=== PATIENT | female | born 1990 | race Caucasian/White ===

== ENCOUNTER 2024-04-18 18:01 | Emergency (ER) | payer MEDICAID, SELFPAY ==
[2024-04-18] VITALS (7 sets, daily range): BP systolic 155–172; BP diastolic 85–109; PULSE 54–77; RESP 16; TEMP 36.8; O2SAT 96–100; BMI 29.9
--- NOTE | 2024-04-18 19:08 | W.ED.ABDPA2 ---
HPI - Abdominal Pain General: Chief Complaint: Abdominal Pain Stated Complaint: N/V Time Seen by Provider: 04/18/24 18:55 History of Present Illness: 34-year-old female presents emergency room complaining of nausea vomiting abdominal pain and cramping for the last several days. She had a headache with some vomiting weakness no hematochezia or melena. No fever sweats or chills she denies previous abdominal surgeries this is actually been going on intermittently for a couple of months she was seen previously at another emergency room no significant organomegaly at that time. Associated Symptoms: Denies chills, dysuria and fever(s) Related Data Date of Last Menstrual Period: 04/16/24 Previous Rx's Medication Instructions Recorded ciprofloxacin HCl 250 mg tablet 250 mg PO BID #10 tabs 04/18/24 (Cipro) lorazepam 2 mg tablet (Ativan) 2 mg buccal Q6H PRN nausea and 04/18/24 vomiting #14 tabs olanzapine 10 mg disintegrating 10 mg PO Q6H PRN nausea and 04/18/24 tablet (Zyprexa Zydis) vomiting #14 tabs Allergies Allergy/AdvReac Type Severity Reaction Status Date / Time No Known Allergies Allergy Verified 04/18/24 18:24 Review of Systems Const: Denies: fever(s) or chills Card: Denies: chest pain Resp: Denies: dyspnea GI: Denies: abdominal pain : Denies: dysuria, urinary frequency or urinary urgency Musc: Denies: neck pain or back pain Skin/Breast: Denies: rash [facility] Female Reproductive History: Date of last menstrual period: 04/16/24 Physical Exam Const: GENERAL APPEARANCE: cooperative ORIENTATION/CONSCIOUSNESS: Yes awake, Yes oriented to person, Yes oriented to place and Yes oriented to time HENMT: COMMON NORMALS: normocephalic, atraumatic and hearing grossly normal bilaterally HEAD & SCALP: normocephalic and atraumatic Resp: COMMON NORMALS: normal respiratory effort, No retractions, No use of accessory muscles and clear to auscultation bilaterally AUSCULTATION: clear to auscultation bilaterally Cardio: COMMON NORMALS: regular rate, regular rhythm and No murmurs present (Cardio) RATE: regular rate RHYTHM: regular rhythm GI: COMMON NORMALS: Soft to palpation and No hepatosplenomegaly present AUSCULTATION: Yes normoactive bowel sounds PALPATION: Yes Soft to palpation, No Tenderness to palpation present (GI), No Guarding due to palpation present (GI) and Yes No hepatosplenomegaly present : COMMON NORMALS: Yes no CVA tenderness BLADDER/KIDNEY EXAM: Yes no CVA tenderness Back/Pelvis: COMMON NORMALS: no CVA tenderness Extremity: COMMON NORMALS: normal to inspection, capillary refill normal, no clubbing, cyanosis or edema, no calf tenderness and no pedal edema Neuro: SENSORIUM/ORIENTATION: Yes oriented to person, Yes oriented to place and Yes oriented to time Skin: COMMON NORMALS: no rashes or lesions noted GENERAL SKIN EXAM: no rashes or lesions noted Course Vital Signs: Vital signs: Vital Signs Temperature 98.3 F 04/18/24 18:18 Pulse Rate 55 L 04/18/24 19:30 Respiratory Rate 16 04/18/24 18:18 Blood Pressure 172/109 04/18/24 19:30 Pulse Oximetry 100 04/18/24 19:30 Oxygen Delivery Me thod Room Air 04/18/24 18:18 MDM - Abdominal Pain Medical Decision Making Labs reviewed reviewed. Patient is anemic. This has been chronic and is being treated with iron. Questionable findings are urine she may have mild bladder Paxlovid is not completely convincing. She does have slight symptoms we will treat with Cipro 250 twice daily. 5 days. I suspect majority of her issues are brought about by anxiety and hyperemesis cannabinoid syndrome she does admit to using high potency THC products on a very regular basis. She had very difficult time with persistent nausea vomiting abdominal cramping even after fluids and antiemetics. She had good resolution of use of Ativan and Haldol. Will discharge home with Zyprexa and Ativan to use. She is feeling much better now after increase fluids. Discussed with her the etiology of this and encouraged her to work at cutting back on the potency or just the overall use of marijuana. Your symptoms. Reviewed the CT findings with her which did not show any critical findings. Follow-up with primary care physician as needed. Medical Records I reviewed the patient's medical records. Lab Data I reviewed the patient's lab results. 04/18/24 19:06 04/18/24 19:06 Labs/Radiology: Radiology Impressions Abdomen/Pelvis CT 04/18/24 19:48 IMPRESSION: No acute findings in the abdomen/pelvis. Laboratory Results WBC 8.04 10^3/uL (3.29-11.43) 04/18/24 19:06 RBC 3.80 10^6/uL (3.85-5.65) L 04/18/24 19:06 Hgb 9.30 g/dL (11.27-16.99) L 04/18/24 19:06 Hct 30.5 % (36-47) L 04/18/24 19:06 MCV 80.3 fl (85-98) L 04/18/24 19:06 MCH 24.5 pg (27-33) L 04/18/24 19:06 MCHC 30.5 g/dL (30-55) 04/18/24 19:06 RDW 19.6 % (12.1-15.1) H 04/18/24 19:06 Plt Count 312 10^3/cmm (157-399) 04/18/24 19:06 MPV 9.9 fL (7.4-10.4) 04/18/24 19:06 Neut % (Auto) 71.3 % 04/18/24 19:06 Lymph % (Auto) 23.9 % 04/18/24 19:06 [place] % (Auto) 4.0 % 04/18/24 19:06 Eos % (Auto) 0.4 % 04/18/24 19:06 Baso % (Auto) 0.4 % 04/18/24 19:06 Neut # (Auto) 5.74 10^3/uL (1.8-7.7) 04/18/24 19:06 Lymph # (Auto) 1.9 10^3/uL (0.8-4.8) 04/18/24 19:06 [place] # (Auto) 0.3 10^3/uL (0.2-0.9) 04/18/24 19:06 Eos # (Auto) 0.0 10^3/uL (0.0-0.8) 04/18/24 19:06 Baso # (Auto) 0.0 10^3/uL (0.0-0.1) 04/18/24 19:06 Nucleated RBC % (auto) 0 % 04/18/24 19:06 Nucleated RBCs # 0.0 /100WBC 04/18/24 19:06 Sodium 140 mmol/L (136-145) 04/18/24 19:06 Potassium 3.6 mmol/L (3.5-5.1) 04/18/24 19:06 Chloride 104 mmol/L (98-107) 04/18/24 19:06 Carbon Dioxide 24 mmol/L (22-29) 04/18/24 19:06 Anion Gap 15.6 (5-19) 04/18/24 19:06 BUN 11 mg/dL (6-20) 04/18/24 19:06 Creatinine 0.8 mg/dL (0.5-0.9) 04/18/24 19:06 GFR Calculation 82.6 mL/min (90-130) L 04/18/24 19:06 Glucose 118 mg/dL (65-115) H 04/18/24 19:06 Calculated Osmolality 290 mOsm/kg (285-295) 04/18/24 19:06 Calcium 8.9 mg/dL (8.5-10.5) 04/18/24 19:06 Total Bilirubin 0.2 mg/dL (0.15-1.2) 04/18/24 19:06 AST 16 U/L (0-32) 04/18/24 19:06 ALT 9 U/L (0-33) 04/18/24 19:06 Alkaline Phosphatase 98 U/L (35-105) 04/18/24 19:06 Total Protein 7.2 g/dL (6.6-8.7) 04/18/24 19:06 Albumin 4.2 g/dL (3.5-5.2) 04/18/24 19:06 Globulin 3.0 g/dL (1.3-4.6) 04/18/24 19:06 Lipase 14 U/L (13-60) 04/18/24 19:06 HCG, Qual Negative (Negative) 04/18/24 19:06 Urine Color Yellow (Yellow) 04/18/24 19:08 Urine Appearance Clear (CLEAR) 04/18/24 19:08 Urine pH 5 (5-7) 04/18/24 19:08 Ur Specific [place] 1.020 (1.005-1.030) 04/18/24 19:08 Urine Protein 1+ (Negative) H 04/18/24 19:08 Urine Glucose (UA) Norm (Normal) 04/18/24 19:08 Urine Ketones 1+ (Negative) H 04/18/24 19:08 Urine Blood Neg (Negative) 04/18/24 19:08 Urine Nitrate Positive (Negative) A 04/18/24 19:08 Urine Bilirubin 1+ (Negative) H 04/18/24 19:08 Urine Urobilinogen 1 mg/dL (Negative) H 04/18/24 19:08 Ur Leukocyte Esterase Negative (Negative) 04/18/24 19:08 Urine RBC 0-4 /hpf (0-2) H 04/18/24 19:08 Urine WBC 0-4 /hpf (0-5) H 04/18/24 19:08 Ur Squamous Epith Cells 5-10 /hpf (0-5) H 04/18/24 19:08 Amorphous Sediment Not Reportable 04/18/24 19:08 Urine Bacteria Trace /hpf (NONE) 04/18/24 19:08 Urine Mucus 1+ /hpf 04/18/24 19:08 All radiology interpretation(s) finalized by discharge Discharge Plan Discharge Patient Disposition: Home Clinical Impression: Cannabinoid hyperemesis syndrome, Anxiety, Cystitis Condition: Stable Prescriptions: New Zyprexa Zydis 10 mg tablet,disintegrating 10 mg PO Q6H PRN (Reason: nausea and vomiting) Qty: 14 0RF Ativan 2 mg tablet 2 mg buccal Q6H PRN (Reason: nausea and vomiting) Qty: 14 0RF Cipro 250 mg tablet 250 mg PO BID Qty: 10 0RF Discharge Orders: Discharge ED (Routine); Ordered 04/18/24 Ordered By: Josue Nash Discharge Diet: Usual diet Discharge Activity: Increase activity as tolerated Patient Instructions: Opioid Safety, Pain Management Activity Restrictions/Additional Instructions: Thank you for choosing [facility] for your healthcare needs today. It is very important that you follow up as instructed or that you return to the Emergency Department should you have concerns or if your condition changes or worsens in any way. You are seen in the emergency room today with complaints of abdominal pain and persistent nausea and vomiting. Based on your laboratory tests and your history suspect this may be caused by regular use of medical marijuana. Medicines you were given to go home with can be used as needed for nausea or vomiting. Be aware these can be very sedating. To alleviate the symptoms in the long run it would be beneficial to cut back on the use of medical marijuana. In addition to this she did have a mild bladder infection. You were given and initial dose of antibiotics in the emergency room and a prescription for oral antibiotics for few days. Coding Level of Care Code ED Complaint Clerk for Pauly Golden
[2024-04-18] MEDS: sodium chloride 0.9% 1,000 ML 999 ML IV ×2 (19:13→20:49)
[2024-04-18 19:14] LABS: Basophils % 0.4 %; Eosinophils % 0.4 %; Hematocrit 30.5 % (36-47); Lymphocytes # 1.9 10^3/uL (0.8-4.8); Lymphocytes % 23.9 %; Mean Corpuscular HGB Conc 30.5 g/dL (30-55); Mean Corpuscular Hemoglobin 24.5 pg (27-33); Mean Corpuscular Volume 80.3 fl (85-98); Mean Platelet Volume 9.9 fL (7.4-10.4); Monocytes # 0.3 10^3/uL (0.2-0.9); Neutrophils # 5.74 10^3/uL (1.8-7.7); Neutrophils % 71.3 %; Nucleated Red Blood Cells % 0 %; Platelet Count 312 10^3/cmm (157-399); Red Cell Distribution Width 19.6 % (12.1-15.1); White Blood Count 8.04 10^3/uL (3.29-11.43)
[2024-04-18] MEDS: ondansetron 2 mg/ML SDV 2 mL 4 MG IVP (19:17)
[2024-04-18 19:22] LABS: Add Urine Culture? No; Add Urine Microscopic? YES; Bacteria Urine TRACE /hpf; Bilirubin Urine 1+ (Negative); Blood Urine Neg (Negative); Glucose Urine UA Norm (Normal); Ketones Urine 1+ (Negative); Leukocyte Esterase Urine Negative (Negative); Mucus Urine 1+ /hpf; Nitrate Urine Positive (Negative); Protein Urine 1+ (Negative); RBC Urine 0-4 /hpf (0-2); Urine Appearance Clear (CLEAR); Urine Color Yellow (Yellow); Urobilinogen Urine 1 mg/dL (Negative); WBC Urine 0-4 /hpf (0-5); pH Urine 5 (5-7)
[2024-04-18 19:29] LABS: HCG, Serum Qual Negative (Negative)
[2024-04-18 19:32] LABS: Alanine Aminotransferase 9 U/L (0-33); Albumin Level 4.2 g/dL (3.5-5.2); Alkaline Phosphatase 98 U/L (35-105); Anion Gap 15.6 (5-19); Aspartate Amino Transferase 16 U/L (0-32); Blood Urea Nitrogen 11 mg/dL (6-20); Calcium 8.9 mg/dL (8.5-10.5); Carbon Dioxide 24 mmol/L (22-29); Chloride 104 mmol/L (98-107); Creatinine Clr Calc Pharmacy 105.5696; Glomerular Filtration Rate 82.6 mL/min (90-130); Glucose 118 mg/dL (65-115); Lipase 14 U/L (13-60); Osmolality Calculated 290 mOsm/kg (285-295); Potassium 3.6 mmol/L (3.5-5.1); Sodium 140 mmol/L (136-145); Total Bilirubin 0.2 mg/dL (0.15-1.2); Total Protein 7.2 g/dL (6.6-8.7)
--- NOTE | 2024-04-18 19:48 | CTR_ITS ---
PROCEDURE INFORMATION: Exam: CT Abdomen And Pelvis With Contrast Exam date and time: 04/18/2024 8:09 PM Age: 34 years old Clinical indication: Nausea and vomiting; Abdominal pain; Generalized; Patient HX: Diffuse abd pain with n/v. TECHNIQUE: Imaging protocol: Computed tomography of the abdomen and pelvis with contrast. Radiation optimization: All CT scans at this facility use at least one of these dose optimization techniques: automated exposure control; mA and/or kV adjustment per patient size (includes targeted exams where dose is matched to clinical indication); or iterative reconstruction. Contrast material: OMNI 350; Contrast volume: 100 ml; Contrast route: INTRAVENOUS (IV); COMPARISON: No relevant prior studies available. RADIATION DOSE METRICS: Total DLP (mGy-cm): 635.44 FINDINGS: Tubes, catheters and devices: Contraceptive ring within the vaginal canal. Liver: Normal. No mass. Gallbladder and biliary ducts: Normal. No calcified stones. No ductal dilation. Pancreas: Normal. No ductal dilation. Spleen: Normal. No splenomegaly. Adrenal glands: Normal. No mass. Kidneys and ureters: Normal. No hydronephrosis. Stomach and bowel: Unremarkable. No obstruction. No mucosal thickening. Appendix: No evidence of appendicitis. Intraperitoneal space: Unremarkable. No free air. No significant fluid collection. Vasculature: Unremarkable. No abdominal aortic aneurysm. Lymph nodes: Unremarkable. No enlarged lymph nodes. Urinary bladder: Unremarkable as visualized. Reproductive: Uterus is retroflexed and otherwise within normal limits. No suspicious adnexal mass. Bones/joints: Unremarkable. No acute fracture. Soft tissues: Unremarkable. CT/CT abdomen pelvis w con* [id number] IMPRESSION: No acute findings in the abdomen/pelvis.
[2024-04-18] MEDS: cefTRIAXone 1,000 mg SDV 1000 MG IVP (19:58)
[2024-04-18] MEDS: iohexol 350 mg/mL 500 mL Btl (per mL) IV (20:12)
[2024-04-18] MEDS: ketorolac 30 mg/mL INJ IVP (20:49)
[2024-04-18] MEDS: diphenhydrAMINE 50 mg/mL SDV 1mL 25 MG IVP (20:49)
[2024-04-18] MEDS: metoclopramide 5 mg/mL SDV 2 mL 10 MG IVP (20:49)
[2024-04-18] MEDS: haloperidol inj 5 mg/mL INJ 1 mL 2.5 MG IVP (21:05)
[2024-04-18] MEDS: LORazepam 2 mg/mL INJ 1 mL 1 MG IVP (21:06)
== END 2024-04-18 22:52 | disposition home or self-care (01) ==
PROVIDERS: Emergency Provider Family Medicine
DX: R11.2 Nausea with vomiting, unspecified (principal); F12.90 Cannabis use, unspecified, uncomplicated; F41.9 Anxiety disorder, unspecified; N30.90 Cystitis, unspecified without hematuria
CPT/HCPCS: 74177; 80053; 81001; 83690; 84703; 85025; 96361; 96374; 96375; 99285; J0696; J1200; J1630; J1885; J2060; J2405; J2765; J7030

== ENCOUNTER → 2024-06-23 18:23 | Outpatient (BNVA) | payer MEDICAID, SELFPAY | PROVIDERS: Visit Provider Family Medicine | DX: R39.9 Unspecified symptoms and signs involving the genitourinary system (principal) | CPT/HCPCS: 81000 ==

== ENCOUNTER → 2024-09-03 18:17 | Outpatient (BNVA) | payer MEDICAID, SELFPAY | PROVIDERS: Visit Provider Nurse Practitioner | DX: N92.6 Irregular menstruation, unspecified (principal) | CPT/HCPCS: 81025 ==

== ENCOUNTER 2024-09-12 14:38 | Emergency (ER) | payer MEDICAID, SELFPAY ==
[2024-09-12 14:56] VITALS: BP 164/98; PULSE 71; RESP 16; TEMP 36.2; O2SAT 100
[2024-09-12 16:25] VITALS: BP 120/77; PULSE 60; O2SAT 100
[2024-09-12 18:44] LABS: Bilirubin Urine Negative (Negative); Blood Urine Negative (Negative); Glucose Urine UA Negative (Normal); Ketones Urine Negative (Negative); Leukocyte Esterase Urine Negative (Negative); Nitrate Urine Negative (Negative); Protein Urine Negative (Negative); Specific Gravity, Urine 1.007 (1.005-1.030); Urine Appearance Clear (CLEAR); Urine Color Yellow (Yellow); Urobilinogen Urine 0.2 mg/dL (Negative)
[2024-09-12 18:49] LABS: Add Urine Microscopic? YES; Bacteria Urine None Seen /hpf; Hyaline Casts Urine 0-4 /lpf; RBC Urine 0-2 /hpf (0-2); Squamous Epithelial Cell Urine 0-5 /hpf (0-5); WBC Urine 0-5 /hpf (0-5)
--- NOTE | 2024-09-12 20:37 | ED_ITS ---
HPI - 2 General: Chief complaint: Vaginal Bleeding Stated complaint: spotting (preg less than 5wks) Time Seen by Provider: 09/12/24 20:30 Source: patient and family Mode of arrival: ambulatory Limitations: no limitations History of Present Illness: This patient made her way to the emergency department this evening because she is concerned about some vaginal spotting the that began earlier this afternoon. When she got to the emergency department she noted she might have some mild pelvic cramping similar to that which she has with menstrual cramps. She has had intercourse last 24 hours but no other trauma etc. She is a she is a A0. Her last menstrual period is approximately 6 weeks ago. She has been off oral contraceptives for approximately 4 months before missing this period. She had 1 child via spontaneous vaginal delivery complicated by preeclampsia. She currently takes an antihypertensive and and also Zoloft and gabapentin. She is uncertain of her blood type. She has not had care thus far Patient : Yes OB History - Current : no complications OB History - Previous Pregnancies: preeclampsia care: none Associated symptoms: Deny abdominal pain, dysuria, headache(s), nausea, syncope, vaginal discharge or vomiting Related Data Home Medications ?Medication ?Instructions ?Recorded ?Confirmed gabapentin 100 mg capsule 100 mg PO DAILY 06/23/24 hydroxyzine HCl 25 mg tablet 25 mg PO BID PRN 06/23/24 09/03/24 lisinopril 20 mg tablet 20 mg PO BID 06/23/24 omeprazole 20 mg capsule,delayed 20 mg PO BID 06/23/24 09/03/24 release sertraline 25 mg tablet 25 mg PO DAILY 09/03/2408/07 Allergies Allergy/AdvReac Type Severity Reaction Status Date / Time haloperidol (From Haldol) Allergy Intermediate ADR-Agitate Verified 09/12/24 15:00 d amoxicillin Allergy ADR-Gastrointestinal Verified 09/12/24 15:00 Upset Review of Systems 2 Const: Denies: fever(s) or chills Eyes: Denies: change in vision or blurry vision ENMT: Denies: throat pain or odynophagia Card: Denies: chest pain, palpitations, irregular heart rhythm, syncope or pre-syncope Resp: Denies: dyspnea, productive cough or non-productive cough GI: Denies: abdominal pain, nausea, vomiting or diarrhea : Reports: vaginal bleeding; Denies: flank pain, difficulty voiding, dysuria, urinary frequency or vaginal discharge Musc: Denies: neck pain, back pain or extremity pain Skin/Breast: Denies: rash or pruritus Neuro: Denies: headache(s) or numbness in extremities [place]/Lymph: Denies: easy bruising or easy bleeding PFSH ED 2 PFSH: Social History Smoking and tobacco/nicotine status: unknown if used tobacco/nicotine Physical Exam 2 Narrative: EXAM NARRATIVE: She is alert and appears to be in no acute distress answers questions in a goal- directed fashion. Const: COMMON NORMALS: no acute distress, average body habitus and patient oriented x3 GENERAL APPEARANCE: cooperative and comfortable HENMT: COMMON NORMALS: Normal nasal mucous membranes and turbinates present and moist oral mucous membranes NOSE: Normal nasal mucous membranes and turbinates present Eye: COMMON NORMALS: Equal, round and reactive pupils present and conjunctivae normal CONJUNCTIVA: Yes conjunctivae normal PUPIL: Yes Equal, round and reactive pupils present Neck/C-Spine: COMMON NORMALS: full ROM Resp: COMMON NORMALS: normal respiratory effort and No use of accessory muscles EFFORT & INSPECTION: Yes able to speak in complete sentences Cardio: COMMON NORMALS: regular rate, regular rhythm and Peripheral pulses 2+ throughout RATE: regular rate RHYTHM: regular rhythm PERIPHERAL PULSES: Peripheral pulses 2+ throughout GI: COMMON NORMALS: Normal to inspection, nondistended, normoactive bowel sounds present and Soft to palpation PALPATION: Yes Soft to palpation : EXTERNAL FEMALE EXAM: Yes normal appearance of the urethra SPECULUM EXAM - CERVIX: Yes Cervical os closed, Yes Cervical bleeding (Small amount of dark brown bleeding no active bleeding through a closed os), No Cervical lesion present and No Cervical laceration present Back/Pelvis: COMMON NORMALS: thoracic and lumbar spine normal to inspection and thoraco-lumbar ROM normal Extremity: COMMON NORMALS: normal to inspection, full ROM and capillary refill normal Neuro: COMMON NORMALS: patient oriented x3, moves all extremities, no focal motor deficits and no sensory deficits noted Psych: COMMON NORMALS: mental status grossly normal Skin: COMMON NORMALS: no rashes or lesions noted and turgor normal GENERAL SKIN EXAM: no rashes or lesions noted and turgor normal Course 2 Reevaluation(s): Reevaluation #1: Patient remained stable discussed expected course, pelvic rest, OB follow-up in the next 3 to 5 days and return precautions for the emergency department. Time: 23:09 Consultations: Consultation #1: Discussed with Dr. Parker is on-call for Jasvir Gomez and he will facilitate her OB follow-up at their facility. He is asked that she call the clinic on Sunday morning. Time: 23:14 Vital Signs: Vital signs: Vital Signs Temperature 97.2 F L 09/12/24 14:56 Pulse Rate 68 09/12/24 21:06 Respiratory Rate 18 09/12/24 21:06 Blood Pressure 120/77 09/12/24 16:25 Pulse Oximetry 100 09/12/24 21:06 Oxygen Delivery Me thod Room Air 09/12/24 16:25 MDM - OB/Uterine Contractions Medical Decision Making Patient made her way to the emergency department as noted in the history of present illness. She is a G2 para 1 A0 at approximately 5 to 6 weeks by her last menstrual period. She had some vaginal spotting with mild pelvic cramping. No prior history of PID, fertility medications etc. Clinical exam revealed her in no acute distress with normal vital signs. She had a closed os with some small amount of brownish discharge at the os and in the posterior fornix. No lacerations or other concerning findings. She had no evidence of anemia, normal platelet count, normal electrolytes. Her beta-hCG was elevated consistent with approximately 5 to 6 weeks gestational age. Differential included possible threatened miscarriage versus implantation bleeding, other potential nonpathologic etiologies of first trimester vaginal bleeding. Transvaginal ultrasound obtained to help provide a plan of disposition. medical lab technician report was reassuring and that there was a gestational sac and a yolk sac present but no discernible IUP however she is below the discriminatory zone at this time. There was no evidence of ovarian mass ovarian torsion, significant free fluid in the pelvis etc. Patient will need follow-up with repeat hCG and repeat ultrasound. No evidence at this time to suggest ectopic, threatened AB etc. She is type O Rh+ and does not need RhoGAM. Lab Data I reviewed the patient's lab results. 09/12/24 19:49 09/12/24 19:49 Laboratory Results WBC 6.94 10^3/uL (3.29-11.43) 09/12/24 19:49 RBC 3.93 10^6/uL (3.85-5.65) 09/12/24 19:49 Hgb 9.40 g/dL (11.27-16.99) L 09/12/24 19:49 Hct 32.1 % (36-47) L 09/12/24 19:49 MCV 81.7 fl (85-98) L 09/12/24 19:49 MCH 23.9 pg (27-33) L 09/12/24 19:49 MCHC 29.3 g/dL (30-55) L 09/12/24 19:49 RDW 17.6 % (12.1-15.1) H 09/12/24 19:49 Plt Count 322 10^3/cmm (157-399) 09/12/24 19:49 MPV 10.4 fL (7.4-10.4) 09/12/24 19:49 Neut % (Auto) 53.9 % 09/12/24 19:49 Lymph % (Auto) 37.2 % 09/12/24 19:49 [place] % (Auto) 6.8 % 09/12/24 19:49 Eos % (Auto) 1.6 % 09/12/24 19:49 Baso % (Auto) 0.4 % 09/12/24 19:49 Neut # (Auto) 3.74 10^3/uL (1.8-7.7) 09/12/24 19:49 Lymph # (Auto) 2.6 10^3/uL (0.8-4.8) 09/12/24 19:49 [place] # (Auto) 0.5 10^3/uL (0.2-0.9) 09/12/24 19:49 Eos # (Auto) 0.1 10^3/uL (0.0-0.8) 09/12/24 19:49 Baso # (Auto) 0.0 10^3/uL (0.0-0.1) 09/12/24 19:49 Nucleated RBC % (auto) 0 % 09/12/24 19:49 Nucleated RBCs # 0.0 /100WBC 09/12/24 19:49 Sodium 139 mmol/L (136-145) 09/12/24 19:49 Potassium 4.1 mmol/L (3.5-5.1) 09/12/24 19:49 Chloride 106 mmol/L (98-107) 09/12/24 19:49 Carbon Dioxide 22 mmol/L (22-29) 09/12/24 19:49 Anion Gap 15.1 (5-19) 09/12/24 19:49 BUN 8 mg/dL (6-20) 09/12/24 19:49 Creatinine 0.6 mg/dL (0.5-0.9) 09/12/24 19:49 GFR Calculation 115.1 mL/min (90-130) 09/12/24 19:49 Glucose 94 mg/dL (65-115) 09/12/24 19:49 Calculated Osmolality 286 mOsm/kg (285-295) 09/12/24 19:49 Calcium 8.8 mg/dL (8.5-10.5) 09/12/24 19:49 Total Bilirubin 0.2 mg/dL (0.15-1.2) 09/12/24 19:49 AST 18 U/L (0-32) 09/12/24 19:49 ALT 9 U/L (0-33) 09/12/24 19:49 Alkaline Phosphatase 97 U/L (35-105) 09/12/24 19:49 Total Protein 7.4 g/dL (6.6-8.7) 09/12/24 19:49 Albumin 4.2 g/dL (3.5-5.2) 09/12/24 19:49 Globulin 3.2 g/dL (1.3-4.6) 09/12/24 19:49 Ser , Semi-Qnt 1274.00 mIU/mL 09/12/24 19:49 Urine Color Yellow (Yellow) 09/12/24 15:08 Urine Appearance Clear (CLEAR) 09/12/24 15:08 Urine pH 6.0 (5-7) 09/12/24 15:08 Ur Specific [place] 1.007 (1.005-1.030) 09/12/24 15:08 Urine Protein Negative (Negative) 09/12/24 15:08 Urine Glucose (UA) Negative (Normal) 09/12/24 15:08 Urine Ketones Negative (Negative) 09/12/24 15:08 Urine Blood Negative (Negative) 09/12/24 15:08 Urine Nitrate Negative (Negative) 09/12/24 15:08 Urine Bilirubin Negative (Negative) 09/12/24 15:08 Urine Urobilinogen 0.2 mg/dL (Negative) 09/12/24 15:08 Ur Leukocyte Esterase Negative (Negative) 09/12/24 15:08 Urine RBC 0-2 /hpf (0-2) 09/12/24 15:08 Urine WBC 0-5 /hpf (0-5) 09/12/24 15:08 Ur Squamous Epith Cells 0-5 /hpf (0-5) 09/12/24 15:08 Amorphous Sediment Not Reportable 09/12/24 15:08 Urine Bacteria None seen /hpf (NONE) 09/12/24 15:08 Hyaline Casts 0-4 /lpf H 09/12/24 15:08 Blood Type O Positive 09/12/24 21:27 Rho(D) Type Rh positive 09/12/24 21:27 XR interpretation done by ED provider, pending radiology final review (Discussed with computer operations technician final reading still pending) Discharge Plan Discharge Patient Disposition: Home Clinical Impression: Vaginal bleeding in patient at less than 20 weeks gestation Condition: Stable Prescriptions: No Action lisinopril 20 mg tablet 20 mg PO BID hydroxyzine HCl 25 mg tablet 25 mg PO BID PRN gabapentin 100 mg capsule 100 mg PO DAILY omeprazole 20 mg capsule,delayed release(DR/EC) 20 mg PO BID sertraline 25 mg tablet 25 mg PO DAILY Discharge Orders: Discharge ED (Routine); Ordered 09/12/24 Ordered By: Petros Xiao Referrals: Monica Lao FNP-C [Primary Care Provider] - Discharge Diet: Usual diet Discharge Activity: Limit activity as instructed Patient Instructions: Opioid Safety, Pain Management Activity Restrictions/Additional Instructions: As we discussed you do not have any evidence at this time that is concerning for a condition such as a threatened miscarriage, ectopic ectopic etc. but additional evaluation and follow-up is important. Call the [facility] clinic on Sunday morning to arrange a follow-up so that they can repeat your blood test and also an ultrasound if needed. If your symptoms worsen such as increasing bleeding cramping or increasing pain return to the emergency department immediately for reevaluation. We advise avoiding tampon use, intercourse etc. until your repeat evaluation. Print Language: [place] Coding Level of Care Code ED Creel Cleaner for Chg Fwd
[2024-09-12 20:41] LABS: Basophils % 0.4 %; Eosinophils # 0.1 10^3/uL (0.0-0.8); Eosinophils % 1.6 %; Hematocrit 32.1 % (36-47); Lymphocytes # 2.6 10^3/uL (0.8-4.8); Lymphocytes % 37.2 %; Mean Corpuscular HGB Conc 29.3 g/dL (30-55); Mean Corpuscular Hemoglobin 23.9 pg (27-33); Mean Corpuscular Volume 81.7 fl (85-98); Mean Platelet Volume 10.4 fL (7.4-10.4); Monocytes # 0.5 10^3/uL (0.2-0.9); Monocytes % 6.8 %; Neutrophils # 3.74 10^3/uL (1.8-7.7); Neutrophils % 53.9 %; Nucleated Red Blood Cells % 0 %; Platelet Count 322 10^3/cmm (157-399); Red Blood Count 3.93 10^6/uL (3.85-5.65); Red Cell Distribution Width 17.6 % (12.1-15.1); White Blood Count 6.94 10^3/uL (3.29-11.43)
[2024-09-12 21:06] VITALS: PULSE 68; RESP 18; O2SAT 100
[2024-09-12 21:15] LABS: Alanine Aminotransferase 9 U/L (0-33); Albumin Level 4.2 g/dL (3.5-5.2); Alkaline Phosphatase 97 U/L (35-105); Anion Gap 15.1 (5-19); Aspartate Amino Transferase 18 U/L (0-32); Blood Urea Nitrogen 8 mg/dL (6-20); Calcium 8.8 mg/dL (8.5-10.5); Carbon Dioxide 22 mmol/L (22-29); Chloride 106 mmol/L (98-107); Creatinine Clr Calc Pharmacy 138.8495; Globulin 3.2 g/dL (1.3-4.6); Glomerular Filtration Rate 115.1 mL/min (90-130); Glucose 94 mg/dL (65-115); Osmolality Calculated 286 mOsm/kg (285-295); Potassium 4.1 mmol/L (3.5-5.1); Sodium 139 mmol/L (136-145); Total Bilirubin 0.2 mg/dL (0.15-1.2); Total Protein 7.4 g/dL (6.6-8.7)
--- NOTE | 2024-09-12 21:22 | USR_ITS ---
PROCEDURE INFORMATION: Exam: US First Trimester, Transabdominal and US , Transvaginal Exam date and time: 09/12/2024 10:42 PM Age: 34 years old Clinical indication: Lmp or gestational age (in weeks): 5w2d; Antepartum complications; Bleeding; ; Additional info: Vaginal bleeding LABS AND CLINICAL REPORTS: Last menstrual period start date: 08/06/2024 Gestational age (Established): 5 w 2 d Estimated due date (Established): 05/13/2025 TECHNIQUE: Imaging protocol: Real-time transabdominal obstetrical ultrasound of the maternal pelvis and a first trimester , less than 14 weeks 0 days, with image documentation. Transvaginal imaging was used for better evaluation of the fetus, adnexa, and/or cervix. COMPARISON: CT abdomen pelvis w con* [id number] 04/18/2024 8:09 PM FINDINGS: GESTATION: Gestation: Yolk sac measures 0.8 mm. Single intrauterine gestational sac as well as yolk sac are present. No definitive pole can be identified at this time. No definitive heart rate can be identified at this time. Estimated age in the light of a positive beta-hCG examination and based on gestational sac size is 5 weeks and 2 days. Embryo/ cardiac activity (BPM): See Gestation finding. Extra-embryonic membranes/Placenta: Unremarkable. No subchorionic bleed. Amniotic/Chorionic fluid: Amniotic and extra-amniotic fluid are normal for gestational age. BIOMETRY: Mean sac diameter: 0.47 cm. EGA (MSD) is 5 w 2 d MATERNAL: Uterus: Unremarkable. Cervix: Cervical length measures 3.1 cm. Right ovary/adnexa: There is preserved flow to the right ovary. Left ovary/adnexa: Small cystic focus in the left ovary measuring 4 x 3 x 4 mm and may represent a follicle. There is preserved flow to the left ovary. Intraperitoneal space: Small amount of free fluid surrounding both ovaries. US/US OB <=14 wk fetus w transvag IMPRESSION: Intrauterine gestational sac and yolk sac identified without a definitive pole or heart rate. Findings may relate to an early . Continued serial beta HCGs and ultrasounds are recommended.
== END 2024-09-13 00:44 | disposition home or self-care (01) ==
PROVIDERS: Emergency Medicine; Emergency Provider Emergency Medicine; PCP Nurse Practitioner
DX: O20.9 Hemorrhage in early pregnancy, unspecified (principal)
CPT/HCPCS: 36415; 76801; 76817; 80053; 81001; 84702; 85025; 86900; 99284

== ENCOUNTER 2025-06-05 15:29 | Outpatient (CLI) | payer MEDICAID, SELFPAY ==
[2025-06-05] VITALS (11 sets, daily range): BP systolic 132–161; BP diastolic 82–102; PULSE 71–81; RESP 15; BMI 35.6
[2025-06-05 16:02] LABS: Glucose Urine UA Negative (Normal); Nitrate Urine Negative (Negative)
[2025-06-05 16:35] LABS: Specific Gravity, Urine 1.048 (1.005-1.030); UA Slide Review UA Slide Review Perf
[2025-06-05 16:58] LABS: Hematocrit 30.1 % (36-47); Hemoglobin 9.10 g/dL (11.27-16.99); Mean Corpuscular HGB Conc 30.2 g/dL (30-55); Mean Corpuscular Hemoglobin 23.8 pg (27-33); Mean Corpuscular Volume 78.8 fl (85-98); Nucleated Red Blood Cells % 0 %; Platelet Count 358 10^3/cmm (157-399); Red Blood Count 3.82 10^6/uL (3.85-5.65); White Blood Count 9.60 10^3/uL (3.29-11.43)
[2025-06-05 17:15] LABS: Alanine Aminotransferase 25 U/L (0-33); Albumin Level 3.8 g/dL (3.5-5.2); Alkaline Phosphatase 145 U/L (35-105); Anion Gap 19.4 (5-19); Aspartate Amino Transferase 39 U/L (0-32); Blood Urea Nitrogen 11 mg/dL (6-20); Calcium 9.6 mg/dL (8.5-10.5); Carbon Dioxide 21 mmol/L (22-29); Chloride 99 mmol/L (98-107); Creatinine Clr Calc Pharmacy 130.5513; Globulin 3.6 g/dL (1.3-4.6); Glucose 91 mg/dL (65-115); Osmolality Calculated 279 mOsm/kg (285-295); Potassium 4.4 mmol/L (3.5-5.1); Sodium 135 mmol/L (136-145); Total Protein 7.4 g/dL (6.6-8.7); Uric Acid 4.8 mg/dL (2.4-5.7)
[2025-06-05 17:30] LABS: UPRO/UCREAT Ratio 0.11 mg/mg CR
== END 2025-06-05 17:50 | disposition home or self-care (01) ==
LOC: OPOB 15:29 → OBGYN 15:30
PROVIDERS: PCP Nurse Practitioner; Visit Provider Family Medicine
DX: O26.899 Other specified pregnancy related conditions, unspecified trimester (principal); Z3A.00 Weeks of gestation of pregnancy not specified; R11.2 Nausea with vomiting, unspecified; R19.7 Diarrhea, unspecified
CPT/HCPCS: 36415; 59025; 80053; 81001; 82570; 84156; 84550; 85025; 99211

== ENCOUNTER 2025-07-02 20:24 | Outpatient (CLI) | payer MEDICAID, SELFPAY ==
[2025-07-02] VITALS (15 sets, daily range): BP systolic 142–180; BP diastolic 87–107; PULSE 67–89; BMI 36.1
[2025-07-02 21:21] LABS: Hematocrit 29.5 % (36-47); Hemoglobin 8.80 g/dL (11.27-16.99); Mean Corpuscular HGB Conc 29.8 g/dL (30-55); Mean Corpuscular Hemoglobin 23.5 pg (27-33); Mean Corpuscular Volume 78.7 fl (85-98); Nucleated Red Blood Cells % 0 %; Platelet Count 308 10^3/cmm (157-399); Red Blood Count 3.75 10^6/uL (3.85-5.65); White Blood Count 9.85 10^3/uL (3.29-11.43)
[2025-07-02 21:22] LABS: Glucose Urine UA Negative (Normal); Nitrate Urine Negative (Negative)
[2025-07-02 22:20] LABS: Add Urine Microscopic? YES; Specific Gravity, Urine 1.045 (1.005-1.030); UA Slide Review UA Slide Review Perf; UPRO/UCREAT Ratio 0.13 mg/mg CR
[2025-07-02 22:21] LABS: UA Manual Slide Review YES
[2025-07-02 23:43] LABS: Alanine Aminotransferase 15 U/L (0-33); Albumin Level 3.4 g/dL (3.5-5.2); Alkaline Phosphatase 165 U/L (35-105); Anion Gap 16.9 (5-19); Aspartate Amino Transferase 22 U/L (0-32); Blood Urea Nitrogen 10 mg/dL (6-20); Calcium 8.6 mg/dL (8.5-10.5); Carbon Dioxide 17 mmol/L (22-29); Chloride 105 mmol/L (98-107); Globulin 3.6 g/dL (1.3-4.6); Glucose 96 mg/dL (65-115); Osmolality Calculated 279 mOsm/kg (285-295); Potassium 3.9 mmol/L (3.5-5.1); Sodium 135 mmol/L (136-145); Total Protein 7.0 g/dL (6.6-8.7); Uric Acid 3.5 mg/dL (2.4-5.7)
[2025-07-02] MEDS: betamethasone susp 6 mg/mL 5 mL 12 MG IM (23:53)
[2025-07-03 00:03] VITALS: BP 180/104; PULSE 80
[2025-07-03 00:14] VITALS: BP 156/97; PULSE 76
[2025-07-03 00:19] VITALS: BP 156/97; PULSE 76
== END 2025-07-03 00:19 | disposition home or self-care (01) ==
LOC: OPOB 20:26 → OBGYN 20:27
PROVIDERS: PCP Nurse Practitioner; Visit Provider Family Medicine
DX: O13.9 Gestational [pregnancy-induced] hypertension without significant proteinuria, unspecified trimester (principal); Z3A.00 Weeks of gestation of pregnancy not specified
CPT/HCPCS: 36415; 59025; 80053; 81001; 82570; 84156; 84550; 85025; 96372; 99211; J0702; J9999

== ENCOUNTER 2025-07-03 23:49 | Outpatient (CLI) | payer MEDICAID, SELFPAY ==
[2025-07-04 00:01] VITALS: BP 148/86; PULSE 70; RESP 18; TEMP 36; O2SAT 99
[2025-07-04] MEDS: betamethasone susp 6 mg/mL 5 mL 12 MG IM (00:23)
[2025-07-04 00:32] VITALS: BP 148/86; PULSE 70; RESP 18; TEMP 36; O2SAT 99
== END 2025-07-04 00:26 | disposition home or self-care (01) ==
LOC: OPOB 23:50 → OBGYN 07-04 00:04
PROVIDERS: PCP Nurse Practitioner; Visit Provider Family Medicine
DX: O26.899 Other specified pregnancy related conditions, unspecified trimester (principal); Z3A.00 Weeks of gestation of pregnancy not specified
CPT/HCPCS: 96372; J0702

== ENCOUNTER 2025-07-06 22:01 | Outpatient (CLI) | payer MEDICAID, SELFPAY ==
[2025-07-06 22:05] VITALS: BMI 36.2
[2025-07-06 22:16] VITALS: BP 144/94; PULSE 75
[2025-07-06 22:31] VITALS: BP 128/77; PULSE 72
[2025-07-06 22:46] VITALS: BP 121/76; PULSE 69
[2025-07-06 23:01] VITALS: BP 126/81; PULSE 65
[2025-07-06 23:10] VITALS: TEMP 36.4
[2025-07-06 23:15] VITALS: BP 126/81; PULSE 87; RESP 17; TEMP 36.4; O2SAT 99
== END 2025-07-06 23:18 | disposition home or self-care (01) ==
LOC: OPOB 22:01 → OBGYN 22:14
PROVIDERS: PCP Nurse Practitioner; Visit Provider Family Medicine
DX: O13.9 Gestational [pregnancy-induced] hypertension without significant proteinuria, unspecified trimester (principal); Z3A.00 Weeks of gestation of pregnancy not specified
CPT/HCPCS: 59025; 99211

== ENCOUNTER 2025-07-29 13:02 | Outpatient (CLI) | payer MEDICAID, SELFPAY ==
--- NOTE | 2025-07-29 13:20 | US_ITS ---
WS: [id number] BIOPHYSICAL PROFILE AMNIOTIC FLUID HISTORY: HYPERTENSION COMPARISON: 05/20/2025 position: Vertex. Cardiac activity: 136 bpm. Cervix: Limited evaluation due to head in the pelvis. Cervix does appear to be closed. Placenta: Posterior, no previa or abruption. Placenta grade: 2 Parameters are as follows: Breathin Movement: 2 Tone: 2 Fluid volume: 2 Amniotic Fluid Index: 13.1 cm. US/US OB BPP wo NST 90632 IMPRESSION: 1. Biophysical profile score: 8/8. 2. Normal amniotic fluid.
== END 2025-07-29 13:03 | disposition home or self-care (01) ==
PROVIDERS: PCP Nurse Practitioner; Visit Provider Family Medicine
DX: O16.3 Unspecified maternal hypertension, third trimester (principal)
CPT/HCPCS: 76819

== ENCOUNTER 2025-08-02 10:35 | Inpatient (IN) | payer MEDICAID, SELFPAY ==
[2025-08-02] VITALS (112 sets, daily range): BP systolic 118–217; BP diastolic 58–126; PULSE 56–101; RESP 15; TEMP 36.1–36.6; O2SAT 97–100; BMI 38.7
[2025-08-02 01:40] LABS: Hematocrit 26.0 % (36-47); Hemoglobin 7.80 g/dL (11.27-16.99); Mean Corpuscular HGB Conc 30.0 g/dL (30-55); Mean Corpuscular Hemoglobin 23.9 pg (27-33); Mean Corpuscular Volume 79.8 fl (85-98); Nucleated Red Blood Cells % 0 %; Platelet Count 296 10^3/cmm (157-399); Red Blood Count 3.26 10^6/uL (3.85-5.65); White Blood Count 9.56 10^3/uL (3.29-11.43)
[2025-08-02 01:51] LABS: Glucose Urine UA Negative (Normal); Nitrate Urine Negative (Negative)
[2025-08-02 01:55] LABS: Add Urine Microscopic? YES; Universal Test for UA Present (0)
[2025-08-02 01:57] LABS: Specific Gravity, Urine 1.037 (1.005-1.030)
[2025-08-02 02:10] LABS: Alanine Aminotransferase 13 U/L (0-33); Albumin Level 3.3 g/dL (3.5-5.2); Alkaline Phosphatase 166 U/L (35-105); Anion Gap 16.1 (5-19); Aspartate Amino Transferase 23 U/L (0-32); Blood Urea Nitrogen 10 mg/dL (6-20); Calcium 8.5 mg/dL (8.5-10.5); Carbon Dioxide 19 mmol/L (22-29); Chloride 107 mmol/L (98-107); Globulin 3.3 g/dL (1.3-4.6); Glucose 83 mg/dL (65-115); Osmolality Calculated 284 mOsm/kg (285-295); Potassium 4.1 mmol/L (3.5-5.1); Sodium 138 mmol/L (136-145); Total Protein 6.6 g/dL (6.6-8.7); Uric Acid 4.7 mg/dL (2.4-5.7)
[2025-08-02] MEDS: penicillin g potassium 5,000,000 UNIT in sodium chloride 0.9% (plus) 100 ML 100 UNIT IV (02:17)
[2025-08-02] MEDS: morphine 4 mg/mL SDV 1 mL 8 MG IM (02:18)
[2025-08-02] MEDS: promethazine 25 mg/mL SDV 1 mL IM (02:20)
[2025-08-02 02:25] LABS: UPRO/UCREAT Ratio 0.11 mg/mg CR
[2025-08-02] MEDS: PENICILLIN G POTASSIUM 2,500,000 UNIT/50 ML BAG 50 UNIT IV ×2 (06:36→10:57)
--- NOTE | 2025-08-02 09:48 | PM.OPHPUD ---
Labor & Delivery H&P Update Date of Procedure: August 02, 2025 Date H&P Performed: 07/28/25 Admission Diagnosis: 1. 35-year-old 3 para 1-0-1-1 at 38 weeks estimated gestational age with gestational hypertension presenting for induction Planned procedure: Spontaneous vaginal delivery Other information: The patient has had a remarkable for having gestational hypertension which has been controlled with labetalol 400 mg p.o. twice daily. Due to her elevated blood pressure, we elected to proceed with an induction. Her is unremarkable for having anemia of , gestational hypertension, anxiety. She has a consistent care. Please refer to OB labs for details. Related Problem List Diagnoses 1. 38 weeks gestation of : 2. Gestational hypertension: A&P Assessment and plan 1. 38 weeks gestation of : I anticipate routine induction and spontaneous vaginal delivery. We will monitor her blood pressures and preeclamptic profile and consider making adjustments to treatment depending on results. Status: Acute 2. Gestational hypertension, third trimester: Status: Acute Qualifiers: Trimester: third trimester PDMP PDMP Reviewed: Not Reviewed
[2025-08-02] MEDS: labetalol 5 mg/mL SDV 20mL 20 MG IVP (10:51)
[2025-08-02] MEDS: ondansetron 2 mg/ML SDV 2 mL 4 MG IVP ×2 (10:51→15:20)
[2025-08-02] MEDS: magnesium sulfate premix 4 GM/100 ML PREMIX IV (10:55)
[2025-08-02] MEDS: labetalol 5 mg/mL SDV 20mL 40 MG IVP (11:14)
[2025-08-02] MEDS: magnesium sulfate premix 20 GM/500 ML BAG IV ×2 (11:24→19:51)
--- NOTE | 2025-08-02 11:37 | ANES.PREANE2 ---
Pre-Anesthetic Assessment Height/Weight: Height 1.65 m Weight 105.687 kg Temp Pulse BP O2 Del Method 97.0 F L 71 178/117 Room Air 08/02/25 00:55 08/02/25 11:34 08/02/25 11:34 08/02/25 01:00 Preop Diagnosis: IUP Labor Epidural Familial anesthetic complications: none Last intake: solid food 2100 08/01/25 clears current Social No alcohol and No tobacco Marijuana 08/01 Exam alert, oriented x 3, clear to auscultation bilaterally and regular rate & rhythm Airway Submandibular: within normal limits Cervical ROM: within normal limits Mallampati: Class II Dentition: full Pulmonary None reported CV/HEM Anemia (hgb 7.8 hct 26), Hypertension and None reported None reported Hepatic fatty liver GI Gastroesophageal Reflux Disease Metabolic None reported Musc/skel Lower Back Pain (chronic) Neuropsych Anxiety and Depression Anesthetic Plan ASA status: 3 Anesthesia: Eval. for regional block (epidural) Medications/Allergies Home Medications ?Medication ?Instructions ?Recorded ?Confirmed ?Last Taken ?Type sertraline 25 mg tablet 100 mg PO DAILY 09/03/24 08/02/25 08/01/25 History labetalol 100 mg tablet 400 mg PO BID 07/02/25 08/02/25 08/01/25 History 0800 pantoprazole 20 mg tablet,delayed 20 mg PO BID PRN Indigestion 07/02/25 08/02/25 08/01/25 History release hydroxyzine pamoate 25 mg capsule 10 mg PO PRN PRN Anxiety 08/02/25 08/02/25 07/31/25 21:00 History (Vistaril) ondansetron HCl 4 mg tablet 4 mg PO PRN PRN Nausea 08/02/25 08/02/25 07/31/25 History Allergies Allergy/AdvReac Type Severity Reaction Status Date / Time haloperidol (From Haldol) Allergy Intermediate ADR-Agitate Verified 07/06/25 22:30 d Current Medications Generic Name Dose Route Start Last Admin Trade Name Freq PRN Reason Stop Dose Admin Hydroxyzine Pamoate 50 mg 08/02/25 09:45 08/02/25 09:54 Hydroxyzine 25 Mg Capsule PO 50 mg QID PRN Administration sleep, agitation or itching Dextrose/Lactated Ringer's 1,000 mls @ 125 mls/hr 08/02/25 00:26 08/02/25 02:18 Dextrose 5%-Lactated Ringers IV 125 mls/hr .Q8H PRN Administration per label comments Penicillin G Potassium 2,500,000 unit in 50 mls @ 50 mls/hr 08/02/25 06:00 08/02/25 10:57 IV 50 mls/hr Q4H YARELIS Administration Protocol Lactated Ringer's 1,000 mls @ 999 mls/hr 08/02/25 10:26 08/02/25 11:20 Lactated Ringers IV 999 mls/hr .Q1H1M PRN Administration See label comments Magnesium Sulfate 20 gm in 500 mls @ 50 mls/hr 08/02/25 10:45 08/02/25 11:24 Magnesium Sulfate Premix IV 50 mls/hr .Q10H YARELIS Administration Labetalol HCl 400 mg 08/02/25 09:10 08/02/25 09:14 Labetalol 200 Mg Tablet PO 400 mg DAILY YARELIS Administration Labetalol HCl 20 mg 08/02/25 10:40 08/02/25 10:51 Labetalol 5 Mg/Ml Sdv 20ml IVP 20 mg PRN PRN Administration HYPERTENSION Protocol Labetalol HCl 40 mg 08/02/25 10:40 08/02/25 11:14 Labetalol 5 Mg/Ml Sdv 20ml IVP 40 mg PRN PRN Administration HYPERTENSION Protocol Ondansetron HCl 4 mg 08/02/25 00:26 08/02/25 10:51 Ondansetron 2 Mg/Ml Sdv 2 Ml IVP 4 mg Q4H PRN Administration NAUSEA AND VOMITING Promethazine HCl 25 mg 08/02/25 00:26 08/02/25 02:20 Promethazine 25 Mg/Ml Sdv 1 Ml IM 25 mg ONCE PRN Administration NAUSEA PFSH Anesthesia Social History Smoking and tobacco/nicotine status: unknown if used tobacco/nicotine Female Reproductive History : 3 Data Anesthesia 08/02/25 01:10 08/02/25 01:10 Short CBC 08/02/25 Range/Units 01:10 WBC 9.56 (3.29-11.43) 10^3/uL Hgb 7.80 L (11.27-16.99) g/dL Hct 26.0 L (36-47) % MCV 79.8 L (85-98) fl Plt Count 296 (157-399) 10^3/cmm Neut % (Auto) 68.2 % Neut # (Auto) 6.51 (1.8-7.7) 10^3/uL BMP 08/02/25 01:10 Sodium 138 Potassium 4.1 Chloride 107 Carbon Dioxide 19 L BUN 10 Creatinine 0.8 Glucose 83 Calcium 8.5 Liver Function 08/02/25 Range/Units 01:10 Total Bilirubin 0.2 (0.15-1.2) mg/dL AST 23 (0-32) U/L ALT 13 (0-33) U/L Alkaline Phosphatase 166 H (35-105) U/L Albumin 3.3 L (3.5-5.2) g/dL Urine 08/02/25 Range/Units 01:10 Urine Color Yellow (Yellow) Urine Appearance Turbid A (CLEAR) Urine pH 6.0 (5-7) Ur Specific [place] 1.037 H (1.005-1.030) Urine Protein 1+ A (Negative) Urine Glucose (UA) Negative (Normal) Urine Ketones Trace (Negative) Urine Nitrate Negative (Negative) Urine Bilirubin Negative (Negative) Ur Leukocyte Esterase Trace A (Negative) Urine RBC 0-2 (0-2) /hpf Urine WBC 10-15 H (0-5) /hpf
[2025-08-02] MEDS: ROPivacaine premix 200 MG/100 ML PREMIX 10 MG EPIDURAL (12:18)
--- NOTE | 2025-08-02 12:25 | ANES.PROC ---
Anesthesia Procedures Procedure/Date: 08/02/25 Epidural: Time Out Performed: Yes Consents Signed: Procedure Consent Consent: requested by attending/covering physician, from patient, risks and benefits reviewed and patient agrees to proceed Lumbar Level: L4-L5 Epidural position: sitting Epidural procedure: sterile prep of area, 1% lidocaine to numb the area, negative for paresthesia passed, neg for paresthesia, test dose given (5ml), 1.5% xylocaine 1:200k epi, 0.2% Ropivacaine bolus ml (5), placed PCEA, no systemic response, sterile dressing applied, L.U.D. no apparent complications and 0.2% Ropiavacaine @ mls/hr (13) Additional Comments: GRICELDA at 8cm on second attempt. Patient reports sensory issues baseline seemed hyper-reactive to every touch and motion throughout procedure. reports severe anxiety uses marijuana to manage anxiety. Catheter threaded to 14cm test dose given with no systemic response. Sterile dressing applied and patient connected to PCEA 5ml bolus of Ropivicaine given from pump started.
[2025-08-02] MEDS: labetalol 5 mg/mL SDV 20mL 80 MG IVP (12:35)
[2025-08-02] MEDS: hyDRALAzine 20 mg/mL INJ 1 mL 5 MG IVP (13:00)
[2025-08-02] MEDS: diphenhydrAMINE 50 mg/mL SDV 1mL 25 MG IVP (13:32)
[2025-08-02] MEDS: oxytocin 30 UNIT/500 ML BAG 600 UNIT IV ×2 (15:04→16:00)
[2025-08-02] MEDS: tranexamic acid 1,000 MG/100 ML PREMIX 600 MG IV ×2 (15:10→15:23)
[2025-08-02] MEDS: metoclopramide 5 mg/mL SDV 2 mL 10 MG IV (15:21)
--- NOTE | 2025-08-02 15:28 | PM.DELIVERY ---
Delivery Note: Date of delivery: August 02, 2025 Pre-delivery diagnoses: 5-year-old 3 para 1-0-1-1 at 38 weeks estimated gestational age with severe gestational hypertension Post-delivery diagnoses: Status post spontaneous vaginal delivery Procedure: Spontaneous vaginal delivery Delivering Physician: Ozzie Salcedo Estimated blood loss (mL): 300 Post Delivery Diagnoses: Gestational hypertension, third trimester: Qualifiers: Trimester: third trimester Pre-Delivery Course: The patient presented to the hospital for induction due to gestational hypertension. She was placed on Cytotec 25 mcg x 2. An amniotomy was performed. An epidural was placed. She progressed to complete. She had a lot of anxiety during the labor process. Her blood pressures did seem to go up in line with her anxiety oftentimes. She did require IV blood pressure medication in addition in addition to her labetalol 40 mg twice a day that she is taking. Because her blood pressures became severe multiple times she was ultimately placed on magnesium. Delivery: DELIVERY: The patient progressed to complete without difficulty. She delivered a male with a weight of 3150 g with Apgars of 6, 9. The baby was delivered from the LUMA position. The baby's mouth and nose were suctioned at the site of the perineum. The baby was then completely delivered and placed on the mother's abdomen. The cord was then clamped and cut. There was no nuchal cord. There was terminal meconium. The placenta and 3 vessel cord were delivered intact shortly thereafter. The perineum and vaginal vault were carefully examined. No lacerations were noted. Both the mother and the baby were in stable condition. The mother did continue to have some persistent bleeding after the delivery. Due to her low hemoglobin level, and persistent bleeding, she was given TXA x 2. Cytotec 800 mg per rectum, and Hemabate IM x 1. Post-Delivery Status: Good A&P Assessment and plan 1. Gestational hypertension, third trimester: I anticipate routine care. Due to her low hemoglobin level we are going to check her hemoglobin again at 4 hours postdelivery. We will continue to maintain both IVs. We will also continue her on her magnesium. Depending on her diuresis and blood pressures we may continue the magnesium 12 hours or 24 hours postdelivery. 2. 38 weeks gestation of : 3. Spontaneous vaginal delivery: 4. Anemia affecting : 5. Anxiety: We will continue the patient on her sertraline. We will add as needed anxiety medications as needed PDMP PDMP Reviewed: Not Reviewed Coding Level of Care Code Acute Code for Chg Fwd Diagnoses Gestational hypertension, third trimester O13.3 Trimester: third trimester 38 weeks gestation of Z3A.38 Spontaneous vaginal delivery O80 Anemia affecting O99.019 Anxiety F41.9
--- OUTSIDE RECORDS SUMMARY | 2025-08-02 18:03 | XMS_ITS | Patient Health Record ---
Author Organization [facility] Address [address] [address] Care Team Providers Care Surgical Technician Name Role Phone Anastacia Clemons Primary Care Provider Unavail able Marina Jamison Unavailable [phone] Allergies Allergen (clinical drug ingredient) Drug/Non Drug Allergy documented on EMR Reaction Allergy Type Onset Date Status Lactose Unknown Drug Allergy Active Reason For Referral No Information Medications Medication SIG (Take, Route, Frequency, Duration) Notes Start Date End Date Status Xifaxan 550 MG Tablet 1 tablet Orally TID; Duration: 14 days 04/13/2021 Not-Taking/PRN Diclofenac Potassium 25 MG Capsule 1 capsule with food or milk as needed Orally QD-BID Not-Taking/PRN Cromolyn Sodium 4 % Solution 1 drop into affected eye Ophthalmic Four times a day Active Sertraline HCl 100 MG Tablet 1.5 tablet Orally Once a day Active Lisinopril 40 mg Active CeleBREX 100 MG Capsule 1 capsule with food Orally Once a day Active Topiramate Active valACYclovir HCl 500 MG Tablet 1 tablet Orally Once a day Active Ibuprofen 200 MG Tablet 1 tablet with fo od or milk as needed Orally every 6 hrs Not-Taking/PA N Pantoprazole Sodium 40 MG Tablet Delayed Release 1 tablet Orally Twice a day Not-Taking/PRN Dicyclomine HCl 10 MG Capsule TAKE 1 CAPSULE BY MOUTH THREE TIMES DAILY NEEDED FOR ABDOMINAL PAIN Orally Three times a day; Duration: 30 days Active Zofran ODT Not-Takin g/PRN Cetirizine HCl 10 MG Tablet 1 tablet Orally Once a day Active Mometasone Furoate 2 puffs in the evening Inhalation Twice a day as needed Not-Taking/PRN valACYclovir HCl 500 MG Tablet 1 tablet Orally Once a day Not-Taking/PRN Gas Relief 80 MG Tablet Chewable 1 tablet after meals and at bedtime as needed Orally Four times a day Not-Taking/PRN Excedrin Extra Strength 250-250-65 MG Tablet 2 tablets Orally Once a day; Duration: 30 day(s) Not-Taking/PRN Acetaminophen 325 MG Tablet 2 tablet as needed Orally every 6 hrs Not-Taking/PA N Clarithromycin 500 MG Tablet 1 tablet Orally every 12 hrs; Duration: 14 days 12/20/2021 Not-Taking/PRN Amoxicillin 500 MG Tablet 2 tablet Orally Twice a day; Duration: 14 days 12/20/2021 Not-Taking/PRN Viberzi 100 MG Tablet 1 tablet with food Orally Twice a day; Duration: 30 days 03/14/2022 Not-Taking/PRN NuvaRing 0.12-0.015 MG/24HR Ring [address] for 3 weeks, remove, and replace with a new ring after 7 day break Vaginal; Duration: 28 day(s) Active Fluticasone Furoate 50 MCG/ACT Aerosol Powder Breath Activated 2 puffs Inhalation Once a day Not-Taking/PRN Losartan Potassium 100 MG Tablet 1/2 tablet Orally Once a day Not-Taking/PRN Sucralfate 1 GM Tablet 1 tablet on an empty stomach Orally Twice a day Not-Taking/PA N NIFEdipine ER 60 MG Tablet Extended Release 24 Hour 1 tablet on an empty stomach Orally Once a day Not-Taking/PRN Latuda 40 MG Tablet 1 tablet with food Orally Once a day Not-Taking/PRN Ergocalciferol Not-T aking/PRN Sucralfate 1 GM Tablet 1 tablet on an empty stomach Orally Four times a day Not-Taking/PRN Acyclovir 400 MG Tablet 1 tablet Orally Twice a day; Duration: 10 day(s) as needed Not-Taking/PRN Femynor 0.25-35 MG-MCG Tablet 1 tablet Orally Once a day; Duration: 28 day(s) Not-Taking/PRN Pantoprazole Sodium 40 MG Tablet Delayed Release 1 tablet Orally twice daily; Duration: 30 days 12/20/2021 Active Ondansetron HCl 4 MG Tablet Disintegrating 1 tablet on the tongue and allow to dissolve Orally twice daily prn nausea; Duration: 30 day(s) 06/24/2021 Active Social History Tobacco Use: Social History Observation Description Date Details (start date - stop date) Former Smoker NA - NA Social History Drugs/Alcohol: Social Info Question Answer Notes Drugs Have you used drugs other than those for medical reasons in the past 12 months? No Old Alcohol Screen Did you have a drink containing alcohol in the past year? No Points 0 Interpretation Negative Tobacco Use: Social Info Question Answer Notes Old Tobacco Use/Smoking Are you a former smoker Tobacco Counseling: Patient counselled o n the dangers of tobacco use and urged to quit. 03/14/2022 Tobacco use other than smoking: Are you an other tobac co user? Yes Vape Problems Problem Type SNOMED Code ICD Code Onset Dates Problem Status W/U Status Risk Notes Problem Irritable bowel syndrome with diarrhea (056122522) Irritable bowel syndrome with diarrhea (K58.0) Active confirmed Problem Generalized abdominal pain (577417647) Generalized abdominal pain (R10.84) Active confirmed probably secondary to IBS r/o SIBO Problem Nausea (489669274) Nausea (R11.0) Active confir med perisistent nausea, could be from h pylori Problem Abnormal blood pressure (47814104) Encounter for examination of blood pressure with abnormal findings (Z01.31) Active confirmed Problem Diarrhea (19340283) Diarrhea (R19.7) Active confirmed Problem Fatty liver (230204333) Fatty liver (K76.0) Active confirmed Problem Helicobacter pylori gastrointestinal tract infection (786417298) H. pylori infection (A04.8) Active confirmed antibiotic completed Problem Gastroesophageal reflux disease without esophagitis (543401105) Gastroesophageal reflux disease without esophagitis (K21.9) Active confirmed Plan Of Treatment Pending Test Test Name Order Date Liver Function Test (LFT) 03/12/2020 CT Enterography 03/12/2020 HCG Urine 11/29/2021 Future Test Test Name Order Date EGD - ESOPHOGASTRODUODENOSCOPY 9 Test, Urine 04/02/2020 LACTULOSE/LACTOSE BREATH TEST 04/05/2020 EGD - ESOPHOGASTRODUODENOSCOPY 2 H. Pylori Breath Test 03/14/2022 Gastric Emptying Study GES 04/06/2022 Insurance Providers Payer Name Payer Address Payer Phone Subscriber Number Group Number Insured Name Patient Relationship to Insured Coverage Start Date Coverage End Date [facility] [address] [place] [address] [id number] Kelly Dc Self - patient is the insured MEDICAID [employer] [address] [place] [address] [id number] Kelly Dc Self - patient is the insured 8 Medical (General) History Medical History History ICD Code depression/anxiety asthma HTN SIBO Surgical History Surgery Date(Month/Year) EGD 08/08/2019 Colonoscopy 03/12/2020 EGD w/biopsy 12/06/2021 Hospitalization History Reason Date(Month/Year) 5 days from giving 05/2018
[2025-08-02 20:30] LABS: Hematocrit 24.9 % (36-47); Hemoglobin 7.60 g/dL (11.27-16.99); Mean Corpuscular HGB Conc 30.5 g/dL (30-55); Mean Corpuscular Hemoglobin 24.1 pg (27-33); Mean Corpuscular Volume 78.8 fl (85-98); Platelet Count 250 10^3/cmm (157-399); Red Blood Count 3.16 10^6/uL (3.85-5.65); White Blood Count 14.39 10^3/uL (3.29-11.43)
--- NOTE | 2025-08-02 21:45 | PC.NURSE ---
Spoke with Dr. Salcedo regarding results of hemagram. He also stated that patient may come off mag at 12 hrs .
[2025-08-03] VITALS (9 sets, daily range): BP systolic 122–165; BP diastolic 77–91; PULSE 63–80; RESP 15–18; TEMP 36.6; O2SAT 96–98
[2025-08-03] MEDS: HYDROcodone-acetaminophen 5-325 mg Tablet PO ×2 (03:01→10:59)
[2025-08-03 03:51] LABS: Hematocrit 24.1 % (36-47); Hemoglobin 7.40 g/dL (11.27-16.99); Mean Corpuscular HGB Conc 30.7 g/dL (30-55); Mean Corpuscular Hemoglobin 23.8 pg (27-33); Mean Corpuscular Volume 77.5 fl (85-98); Platelet Count 289 10^3/cmm (157-399); Red Blood Count 3.11 10^6/uL (3.85-5.65); White Blood Count 15.30 10^3/uL (3.29-11.43)
[2025-08-03] MEDS: PRENATAL VIT NO.130/IRON/FOLIC 1 EACH TABLET PO (05:51)
[2025-08-03] MEDS: benzocaine-menthol 78 gm Canister 1 SPRAY TOPICAL (05:54)
--- NOTE | 2025-08-03 07:00 | P.PN_ITS ---
[employer] Subjective 2 Subjective: Interval history: The patient has done quite well overnight. Her bleeding has been minimal. Her pain is been well-controlled. Her anxiety is much better since delivery of the baby. Her blood pressure has improved dramatically. Her magnesium was stopped this morning. Labor: Station: +1 Amniotic Membrane Status: Ruptured Monitor Mode: External Contraction Pattern: Regular Vitals/I&O/Wt Last Vital Signs Temp 97.9 F 08/03/25 04:00 Pulse 80 08/03/25 03:17 Resp 18 08/03/25 04:00 BP 138/84 08/03/25 04:00 Pulse Ox 100 08/02/25 14:21 O2 Del Method Room Air 08/02/25 01:00 08/02/25 08/03/25 08/03/25 22:59 06:59 14:59 Intake Total 100 / 150 Output Total 3000 / 3750 900 / 4650 Balance -2900 / -3600 -900 / -4500 Weight last 48 hrs Weight 233 lb Physical Exam 2 Narrative: The patient is alert. She appears comfortable. Her heart has a regular rate and rhythm with no murmurs appreciated. Lungs are clear to auscultation bilaterally. Her fundus is firm and below the umbilicus. Urinary Catheter Management: Salazar: Cath Placed During This Visit: yes, but has since been removed by the nurse Reason for Continuing Indwelling Catheter: Decision to DC Catheter Urinary Catheter Date of Insertion: 08/02/25 Urinary Catheter Time of Insertion: 16:45 Date Urinary Catheter Removed: 08/02/25 Time Urinary Catheter Discontinued: 14:45 Data 08/03/25 03:40 08/02/25 01:10 A&P Assessment and plan 1. Spontaneous vaginal delivery: We will continue to keep the patient on her labetalol. I anticipate she will be discharged home tomorrow morning. Thankfully her blood counts have maintained relatively stable given her low hemoglobin on arrival to hospital. 2. 38 weeks gestation of : 3. Anxiety: 4. Gestational hypertension, third trimester: 5. Anemia affecting : PDMP PDMP Reviewed: Not Reviewed Attestations 2 Medical Necessity Statement*: Routine care for including gestational hypertension and severe anxiety. I anticipate she will be discharged home after another night stay in the hospital. Coding Level of Care Code Acute Code for Chg Fwd Diagnoses Spontaneous vaginal delivery O80 38 weeks gestation of Z3A.38 Anxiety F41.9 Gestational hypertension, third trimester O13.3 Trimester: third trimester Anemia affecting O99.019
--- NOTE | 2025-08-03 08:15 | ANE.PACU2 ---
Inpatient post-anesthesia follow up: Airway intact: Yes Vital signs: Temperature 98.2 F Pulse Rate 90 Respiratory Rate 17 Blood Pressure 149/87 Pulse Oximetry 98 Oxygen Delivery Me thod Room Air Oxygen Flow Rate Fraction of Inspir ed Oxygen Hydration adequate: Yes Nausea and vomiting: No Pain level: 1 Mental status: Baseline Epidural Start/End: Epidural Start Date: 08/02/25 Epidural Start Time: 11:45 Epidural End Date: 08/02/25 Epidural End Time: 16:53
[2025-08-04] MEDS: PRENATAL VIT NO.130/IRON/FOLIC 1 EACH TABLET PO (06:10)
[2025-08-04 06:12] VITALS: BP 134/75; PULSE 64; RESP 16; TEMP 36.9; O2SAT 96
--- NOTE | 2025-08-04 10:16 | ANES.PROC ---
Anesthesia Procedures Procedure/Date: 08/02/25 Epidural Procedure Narrative: Pt. screaming and writhing in pain, states epidural has made no improvement in pain, able to distinct cold bilateral, bolused with 100mcg fentanyl and 5mL 2% lidocaine with no improvment. Epidural pulled, catheter intact, replaced with GRICELDA at 8cm, negative test dose, no systemic response. Pt. now states legs are starting to feel numb and intensity of pain is decreasing. Epidural: Time Out Performed: Yes Consents Signed: Procedure Consent Consent: from patient, risks and benefits reviewed and patient agrees to proceed Lumbar Level: L4-L5 Epidural position: sitting Epidural procedure: sterile prep of area, 1% lidocaine to numb the area, 18 g needle, negative for paresthesia passed, neg for paresthesia, test dose given, 1.5% xylocaine 1:200k epi, 0.2% Ropivacaine bolus ml (5), placed PCEA, no systemic response, sterile dressing applied, L.U.D. no apparent complications and 0.2% Ropiavacaine @ mls/hr (13)
--- NOTE | 2025-08-04 11:20 | P.DS_ITS ---
Discharge Providers [employer] Date of Admission: 08/02/25 10:35 Date of Discharge: 08/04/25 Attending Provider at Admission: Ozzie Salcedo MD Attending Provider at Discharge: Ozzie Salcedo MD Primary Care Provider: ODELL Greenberg Diagnoses at Discharge Discharge Diagnosis 1. Gestational hypertension, third trimester: 2. 38 weeks gestation of : 3. Spontaneous vaginal delivery: 4. Anemia affecting : 5. Anxiety: Reason for Visit Reason for Visit: IOL Hospital Course Hospital Course The patient presented to the hospital for induction due to gestational hypertension. She was placed on Cytotec 25 mcg x 2. An amniotomy was performed. An epidural was placed. She had a lot of anxiety/panic attacks prior to delivery of the . Her vaginal delivery was unremarkable. She had no tears. She had moderate bleeding, but due to her low hemoglobin, she was placed on TXA x 2, Cytotec, and Hemabate to prevent more significant bleeding. Her course is otherwise been unremarkable. Her bleeding has been within normal limits. Her hemoglobin drop was minimal. She has breast-fed with some challenges, but that has been improving. Her anxieties been much better. Her blood pressures are improved. She is continuing on her labetalol 40 mg p.o. twice daily. Information Peripartum Data: Infant Delivery Method: Vaginal Physical Exam Narrative: The patient is alert. She appears comfortable. Her heart has a regular rate and rhythm with no murmurs appreciated. Lungs are clear to auscultation bilaterally. Her fundus is firm and below the umbilicus. Urinary Catheter Management: Salazar: Cath Placed During This Visit: yes, but has since been removed by the nurse Reason for Continuing Indwelling Catheter: Decision to DC Catheter Urinary Catheter Date of Insertion: 08/02/25 Urinary Catheter Time of Insertion: 16:45 Date Urinary Catheter Removed: 08/02/25 Time Urinary Catheter Discontinued: 14:45 Discharge Data Studies Completed and Pending Pending at discharge Category Date Time Status High Risk PP Hemorrhage Stat Lab 08/02/25 18:47 Received Laboratory Results WBC 15.30 10^3/uL (3.29-11.43) H 08/03/25 03:40 RBC 3.11 10^6/uL (3.85-5.65) L 08/03/25 03:40 Hgb 7.40 g/dL (11.27-16.99) L 08/03/25 03:40 Hct 24.1 % (36-47) L 08/03/25 03:40 MCV 77.5 fl (85-98) L 08/03/25 03:40 MCH 23.8 pg (27-33) L 08/03/25 03:40 MCHC 30.7 g/dL (30-55) 08/03/25 03:40 RDW 20.0 % (12.1-15.1) H 08/03/25 03:40 Plt Count 289 10^3/cmm (157-399) 08/03/25 03:40 MPV 9.3 fL (7.4-10.4) 08/03/25 03:40 Neut % (Auto) 68.2 % 08/02/25 01:10 Lymph % (Auto) 23.7 % 08/02/25 01:10 [place] % (Auto) 6.9 % 08/02/25 01:10 Eos % (Auto) 0.4 % 08/02/25 01:10 Baso % (Auto) 0.2 % 08/02/25 01:10 Neut # (Auto) 6.51 10^3/uL (1.8-7.7) 08/02/25 01:10 Lymph # (Auto) 2.3 10^3/uL (0.8-4.8) 08/02/25 01:10 [place] # (Auto) 0.7 10^3/uL (0.2-0.9) 08/02/25 01:10 Eos # (Auto) 0.0 10^3/uL (0.0-0.8) 08/02/25 01:10 Baso # (Auto) 0.0 10^3/uL (0.0-0.1) 08/02/25 01:10 Nucleated RBC % (auto) 0 % 08/02/25 01:10 Nucleated RBCs # 0.0 /100WBC 08/02/25 01:10 Sodium 138 mmol/L (136-145) 08/02/25 01:10 Potassium 4.1 mmol/L (3.5-5.1) 08/02/25 01:10 Chloride 107 mmol/L (98-107) 08/02/25 01:10 Carbon Dioxide 19 mmol/L (22-29) L 08/02/25 01:10 Anion Gap 16.1 (5-19) 08/02/25 01:10 BUN 10 mg/dL (6-20) 08/02/25 01:10 Creatinine 0.8 mg/dL (0.5-0.9) 08/02/25 01:10 GFR Calculation 82.1 mL/min (90-130) L 08/02/25 01:10 Glucose 83 mg/dL (65-115) 08/02/25 01:10 Calculated Osmolality 284 mOsm/kg (285-295) L 08/02/25 01:10 Uric Acid 4.7 mg/dL (2.4-5.7) 08/02/25 01:10 Calcium 8.5 mg/dL (8.5-10.5) 08/02/25 01:10 Total Bilirubin 0.2 mg/dL (0.15-1.2) 08/02/25 01:10 AST 23 U/L (0-32) 08/02/25 01:10 ALT 13 U/L (0-33) 08/02/25 01:10 Alkaline Phosphatase 166 U/L (35-105) H 08/02/25 01:10 Total Protein 6.6 g/dL (6.6-8.7) 08/02/25 01:10 Albumin 3.3 g/dL (3.5-5.2) L 08/02/25 01:10 Globulin 3.3 g/dL (1.3-4.6) 08/02/25 01:10 Urine Color Yellow (Yellow) 08/02/25 01:10 Urine Appearance Turbid (CLEAR) A 08/02/25 01:10 Urine pH 6.0 (5-7) 08/02/25 01:10 Ur Specific [place] 1.037 (1.005-1.030) H 08/02/25 01:10 Urine Protein 1+ (Negative) A 08/02/25 01:10 Urine Glucose (UA) Negative (Normal) 08/02/25 01:10 Urine Ketones Trace (Negative) 08/02/25 01:10 Urine Blood Negative (Negative) 08/02/25 01:10 Urine Nitrate Negative (Negative) 08/02/25 01:10 Urine Bilirubin Negative (Negative) 08/02/25 01:10 Urine Urobilinogen 1.0 mg/dL (Negative) 08/02/25 01:10 Ur Leukocyte Esterase Trace (Negative) A 08/02/25 01:10 Urine RBC 0-2 /hpf (0-2) 08/02/25 01:10 Urine WBC 10-15 /hpf (0-5) H 08/02/25 01:10 Ur Squamous Epith Cells 25-40 /hpf (0-5) H 08/02/25 01:10 Amorphous Sediment Not Reportable 08/02/25 01:10 Urine Bacteria 1+ /hpf (NONE) H 08/02/25 01:10 Hyaline Casts 0.40 /lpf 08/02/25 01:10 U Random Total Protein 32 mg/dL 08/02/25 01:10 Urine Creatinine 296 mg/dL (28-217) H 08/02/25 01:10 Protein/Creatinin Ratio 0.11 mg/mg CR 08/02/25 01:10 Blood Type O Positive 08/02/25 01:10 Rho(D) Type Rh positive 08/02/25 01:10 Antibody Screen Negative 08/02/25 01:10 Vitals Last Vital Signs Temp 98.5 F 08/04/25 06:12 Pulse 64 08/04/25 06:12 Resp 16 08/04/25 06:12 BP 134/75 08/04/25 06:12 Pulse Ox 96 08/04/25 06:12 O2 Del Method Room Air 08/04/25 06:12 Results Labs OB ([facility]): Obstetrics US 05/20/25 Obstetrics US/Biophysical Profile Blood Type O Positive 08/02/25 Antibody Screen Negative 08/02/25 Hct, (36-47) 24.1 % L 08/03/25 Hgb, (11.27-16.99) 7.40 g/dL L 08/03/25 Rho(D) Type Rh positive 08/02/25 Plt Count, (157-399) 289 10^3/cmm 08/03/25 Uric Acid, (2.4-5.7) 4.7 mg/dL 08/02/25 Ser , Semi-Qnt 1274.00 mIU/mL 09/12/24 HCG, Qual, (Negative) Positive H 01/29/25 Discharge Plan Discharge Patient Disposition: Home Condition: Stable Prescriptions: New ibuprofen 800 mg Tablet 800 mg PO TID Qty: 45 0RF Vitamin 27 mg iron- 800 mcg Tablet 1 tab PO DAILY Qty: 90 0RF ferrous sulfate [iron] 325 mg (65 mg iron) tablet 325 mg PO BID Qty: 60 0RF Rx Instructions: Take separate from meals with vitamin C. Continued sertraline 25 mg tablet 100 mg PO DAILY labetalol 100 mg Tablet 400 mg PO BID hydroxyzine pamoate [Vistaril] 25 mg Capsule 10 mg PO PRN PRN (Reason: Anxiety) Discontinued pantoprazole 20 mg Tablet,Delayed Release (Dr/Ec) 20 mg PO BID PRN (Reason: Indigestion) ondansetron HCl [Zofran] 4 mg Tablet 4 mg PO PRN PRN (Reason: Nausea) Discharge Order = DC NOW: Discharge Order (Routine); Ordered 08/04/25 Ordered By: Ozzie Salcedo Referrals: Ozzie Salcedo MD [Physician, Family Practice] - 4-7 days Referral Note: coordinate with baby appt. Keep 6 week appt as well. Discharge Diet: Low Salt Discharge Activity: Limit activity as instructed Patient Instructions: Depression (DC), Opioid Safety (DC), Preeclampsia and Eclampsia After Delivery (GEN), Hemorrhage (DC), OB Discharge Report, OB Food/Drug Interaction Guide, OB Care at Home, Opioid Safety, OB Vaginal Deliveries, Patient Portal & Amina Instructions, Abnormal Bleeding Discharge Attestations [employer] Time Spent in Discharge Care*: greater than 30 min Coding Level of Care Code Acute Code for Chg Fwd Diagnoses Gestational hypertension, third trimester O13.3 Trimester: third trimester 38 weeks gestation of Z3A.38 Spontaneous vaginal delivery O80 Anemia affecting O99.019 Anxiety F41.9
[2025-08-04] MEDS: FLU VACC TS2025-26(6MOS UP)/PF 45 MCG/0.5 ML SYRINGE IM (12:47)
[2025-08-04 13:15] VITALS: BP 149/87; PULSE 90; RESP 17; TEMP 36.8; O2SAT 98
[2025-08-04 14:09] LABS: High Risk PP Hemorrhage BBK Notified
== END 2025-08-04 13:15 | disposition home or self-care (01) | DRG 560 ==
LOC: OPOB 18:00 → OBGYN 18:00
PROVIDERS: Admitting Provider Family Medicine; PCP Nurse Practitioner; Visit Provider Family Medicine
DX: O13.4 Gestational [pregnancy-induced] hypertension without significant proteinuria, complicating childbirth (principal); O99.02 Anemia complicating childbirth; D64.9 Anemia, unspecified; O77.0 Labor and delivery complicated by meconium in amniotic fluid; O99.344 Other mental disorders complicating childbirth; F41.9 Anxiety disorder, unspecified; Z3A.38 38 weeks gestation of pregnancy; Z37.0 Single live birth
CPT/HCPCS: 36415; 51702; 59025; 59409; 80053; 81001; 82570; 83986; 84156; 84550; 85025; 85027; 86850; 86900; 90471; 90656; 96372; J0360; J1200; J2270; J2405; J2540; J2550; J2590; J2765; J2795; J3010; J3475; J3490; J7040; J7120; J7121; J9999